=== PATIENT | male | born 1975 | race Caucasian/White ===

== ENCOUNTER 2023-12-22 18:20 | Emergency (ER) | payer OTHER ==
[~2023-12-22] VITALS: Ht 193 cm; Wt 113.4 kg
[~2023-12-22 18:20] MED LIST: ACET325; CALCIUM CARBONATE; CYCL10 PO; DIPH50; HYDACE5 PO; IBUP200; IBUP600 PO; IBUP800 PO; LOPE2C PO; MAGNESIUM HYDROXIDE; Naprosyn500 MG PO; Norco 5-325 Ta1 EACH PO; ONDA4 PO; PANT20 PO; PENVK500 PO; PROCODE120 PO; [UNRECOGNIZED DRUG - OTHER]
[2023-12-22 18:40] VITALS: BP 150/94
[2023-12-22] MEDS ORDERED: Ondansetron 4 MG SoluTab SL ONE (19:35)
[2023-12-22] MEDS ORDERED: RX Prepack 2 Tabs Ondansetron ODT 4MG UD ONE (19:35)
[2023-12-22] MEDS ORDERED: ONDA4ODT MM (19:36)
== END 2023-12-22 19:56 | disposition home or self-care (01) ==
LOC: ER 18:20
DX: K52.9 Noninfective gastroenteritis and colitis, unspecified (principal); Z88.7 Allergy status to serum and vaccine; Z91.018 Allergy to other foods
CPT/HCPCS: 99283; A9270